=== PATIENT | male | born 1960 ===

== ENCOUNTER 2016-10-30 10:23 | Emergency (ER) | payer MEDICARE ==
[2016-10-30 10:41] VITALS: BMI 40.1
[2016-10-30 10:45] VITALS: RESP 17; TEMP 97.4
[2016-10-30] MEDS ORDERED: Sodium Chloride 0.9% 1,000 ML IV STA (11:25)
--- NOTE | 2016-10-30 11:29 | ED PDOC ---
Arrival/HPI - General Chief Complaint: Medical Clearance Time Seen by Provider: 10/30/16 11:10 Historian: Patient - History of Present Illness Narrative History of Present Illness (Text): 10/30/16 11:27 56 year old male with a past medical history that includes pancreatic cancer and DM, sent to the emergency department from chemo/radiation for low blood pressure prior to arrival. Patient states his blood pressure was in the 70's systolic associated with some very mild dizziness which has since resolved. Currently patient has no complaints. Patient denies any fever, sore throat, cough, shortness of breath, nausea, vomiting, abdominal pain, urinary/bowel changes, back pain, new rashes, headache, vision changes or other associated symptoms. His BP in the ED was normal without any intervention. Time/Duration: 24 hours Symptom Onset: Gradual Symptom Course: Resolved Modifying Factors (Text): None Associated Symptoms (Text): None Past Medical History - Provider Review Nursing Documentation Reviewed: Yes - Cardiac Hx Hypertension: Yes Hx Pacemaker: No - Pulmonary Hx Asthma: Yes - Endocrine/Metabolic Hx Diabetes Mellitus Type 2: Yes - Hematological/Oncological Hx Blood Transfusions: No Hx Cancer: Yes - Musculoskeletal/Rheumatological Hx Musculoskeletal Disorders: No - Psychiatric Hx Emotional Abuse: No Hx Physical Abuse: No Hx Substance Use: No - Anesthesia Hx Anesthesia Reactions: No Hx Malignant Hyperthermia: No - Suicidal Assessment Feels Threatened In Home Enviroment: No Family/Social History - Physician Review Nursing Documentation Reviewed: Yes Family/Social History: Unknown Family HX Smoking Status: Never Smoked Hx Alcohol Use: No Hx Substance Use: No Allergies/Home Meds Allergies/Adverse Reactions: Allergies penicillin G procaine Allergy (Verified 10/30/16 10:41) RASH Penicillins Allergy (Verified 10/30/16 10:41) ANAPHYLAXIS Home Medications: Home Meds Medication Instructions Recorded Confirmed Budesonide/Formoterol Fumarate 1 aer IH DAILY 10/30/16 10/30/16 [Symbicort] Canagliflozin [Invokana] 300 mg PO DAILY 10/30/16 10/30/16 Cetirizine HCl [Allergy Relief] 10 mg PO DAILY 10/30/16 10/30/16 Cilostazol [Pletal] 100 mg PO DAILY 10/30/16 10/30/16 Fenofibrate [Triglide] 160 mg PO DAILY 10/30/16 10/30/16 Insulin Aspart, Recombinant 100 unit SQ DAILY 10/30/16 10/30/16 [Novolog] Insulin Detemir [Levemir] 100 unit SC DAILY 10/30/16 10/30/16 Linagliptin [Tradjenta] 5 mg PO DAILY 10/30/16 10/30/16 MetFORMIN [glucOPHAGE] 500 mg PO BID 10/30/16 10/30/16 Pantoprazole [Protonix] 40 mg PO DAILY 10/30/16 10/30/16 Pregabalin [Lyrica] 100 mg PO DAILY 10/30/16 10/30/16 Rosuvastatin Calcium [Crestor] 10 mg PO DAILY 10/30/16 10/30/16 Valsartan [Diovan] 40 mg PO DAILY 10/30/16 10/30/16 Valsartan [Diovan] 40 mg PO DAILY 10/30/16 10/30/16 Review of Systems - Physician Review All systems were reviewed & negative as marked: Yes - Review of Systems Constitutional: absent: Fevers Eyes: absent: Vision Changes ENT: absent: Hearing Changes, Sore Throat Respiratory: absent: SOB, Cough Cardiovascular: absent: Chest Pain Gastrointestinal: absent: Abdominal Pain, Nausea, Vomiting Genitourinary Male: absent: Dysuria, Hematuria Musculoskeletal: absent: Back Pain Skin: absent: Rash Neurological: absent: Dizziness Endocrine: absent: Diaphoresis Hemo/Lymphatic: absent: Easy Bleeding Psychiatric: absent: Depression Physical Exam Vital Signs Reviewed: Yes Vital Signs Temp Pulse Resp BP Pulse Ox 10/30/16 10:24 97.4 F L 85 17 107/66 97 Temperature: Afebrile Blood Pressure: Normal Pulse: Regular Respiratory Rate: Normal Appearance: Positive for: Well-Appearing, Non-Toxic, Comfortable Pain Distress: None Mental Status: Positive for: Alert and Oriented X 3 - Systems Exam Head: Present: Atraumatic, Normocephalic Pupils: Present: PERRL Conjunctiva: Present: Normal Mouth: Present: Moist Mucous Membranes Pharnyx: Present: Normal. No: ERYTHEMA, EXUDATE Neck: Present: Normal Range of Motion Respiratory/Chest: Present: Clear to Auscultation, Good Air Exchange. No: Respiratory Distress, Accessory Muscle Use Cardiovascular: Present: Regular Rate and Rhythm, Normal S1, S2. No: Murmurs Abdomen: Present: Normal Bowel Sounds. No: Tenderness, Distention, Peritoneal Signs Back: Present: Normal Inspection Upper Extremity: Present: Normal Inspection. No: Cyanosis, Edema Lower Extremity: Present: Normal Inspection. No: Edema Neurological: Present: GCS=15, CN II-XII Intact, Speech Normal Skin: Present: Warm, Dry, Normal Color. No: Rashes Psychiatric: Present: Alert, Oriented x 3, Normal Insight, Normal Concentration Medical Decision Making ED Course and Treatment: Impression: 56 year old male with a past medical history that includes pancreatic cancer sent to the emergency department from chemo/radiation for low blood pressure prior to arrival, which has since resolved and in now asymptomatic. Plan: -- EKG -- IV fluids, Labs -- Reassess and disposition Progress Notes: Patient's BP is normal here with unremarkable EKG and labs. Spoke with radiation, who said the patient may return for his treatment. 10/30/16 13:21 - Lab Interpretations Lab Results: 10/30/16 12:00 10/30/16 12:00 Lab Results 10/30/16 12:00: WBC 5.1, RBC 4.33, Hgb 13.0 L, Hct 37.0 L, MCV 85.5, MCH 30.0, MCHC 35.1, RDW 13.3, Plt Count 120, MPV 11.6 H, Gran % 72.9 H, Lymph % (Auto) 12.3 L, Kerr % (Auto) 10.5 H, Eos % (Auto) 3.9, Baso % (Auto) 0.4, Gran # 3.75, Lymph # 0.6 L, Kerr # 0.5, Eos # 0.2, Baso # 0.02, PT 11.0, INR 1.02, APTT 28.5 , Sodium 135, Potassium 4.1, Chloride 98, Carbon Dioxide 29, Anion Gap 12, BUN 6 L, Creatinine 0.6, Est GFR ( Amer) > 60, Est GFR (Non-Af Amer) > 60, Random Glucose 278 H, Calcium 8.9, Total Bilirubin 0.9, AST 22, ALT 35, Alkaline Phosphatase 87, Lactate Dehydrogenase 357, Total Creatine Kinase 157, Troponin I 0.01, Total Protein 6.6, Albumin 3.4, Globulin 3.2, Albumin/Globulin Ratio 1.1, Lipase < 10 L, Urine Color Yellow, Urine Appearance Clear, Urine pH 6.0, Ur Specific Lares <= 1.005, Urine Protein Negative, Urine Glucose (UA) >= 1000, Urine Ketones Negative, Urine Blood Negative, Urine Nitrate Negative, Urine Bilirubin Negative, Urine Urobilinogen 0.2, Ur Leukocyte Esterase Negative - EKG Interpretation EKG Interpretation (Text): 10/30/16 13:22 sinus hilario @ 57; no ST/T changes; LAD; normal intervals. - Medication Orders Current Medication Orders: Discontinued Medications Sodium Chloride (Sodium Chloride 0.9%) 1,000 mls @ 999 mls/hr IV .[id number] STA Stop: 10/30/16 12:25 Last Admin: 10/30/16 12:00 Dose: 999 MLS/HR eMAR Start Stop Document 10/30/16 12:00 SHANIQUA (Rec: 10/30/16 12:02 SHANIQUA [id number]) Intravenous Solution Start Date 10/30/16 Start Time 12:00 End Date 10/30/16 End time 13:00 Total Infusion Time 60 - Scribe Statement The provider has reviewed the documentation as recorded by the Tahir Mcgill Provider Scribe Attestation: All medical record entries made by the Tahir were at my direction and personally dictated by me. I have reviewed the chart and agree that the record accurately reflects my personal performance of the history, physical exam, medical decision making, and the department course for this patient. I have also personally directed, reviewed, and agree with the discharge instructions and disposition. Disposition/Present on Arrival - Present on Arrival Any Indicators Present on Arrival: No History of DVT/PE: No History of Uncontrolled Diabetes: No Urinary Catheter: No History of Decub. Ulcer: No History Surgical Site Infection Following: None - Disposition Have Diagnosis and Disposition been Completed?: Yes Diagnosis: Hypotension Disposition: HOME/ ROUTINE Disposition Time: 15:25 Patient Plan: Discharge Condition: GOOD Additional Instructions: Go directly radiation. Return to the emergency department if any new concerning symptoms.
[2016-10-30 12:17] LABS: ADD MANUAL DIFF? NO
[2016-10-30 12:37] LABS: BASO # 0.02 K/mm3 (0.0-2.0); BASO % 0.4 % (0.0-3.0); EOS # 0.2 (0.0-0.7); EOS % 3.9 % (1.5-5.0); GRAN # 3.75 (1.4-6.5); GRAN % 72.9 % (50.0-68.0); LYMPH # 0.6 (1.2-3.4); LYMPH % 12.3 % (22.0-35.0); MEAN CELL VOLUME 85.5 fL (80.0-105.0); MEAN CORPUSCULAR HGB CONC 35.1 g/dl (31.0-37.0); MEAN PLATELET VOLUME 11.6 fl (7.0-11.0); MONO # 0.5 (0.1-0.6); MONO % 10.5 % (1.0-6.0); PLATELET COUNT 120 10^3/uL (120.0-450.0); RED CELL DISTRIBUTION WIDTH 13.3 % (11.5-14.5); URINE BILIRUBIN NEGATIVE (NEGATIVE); URINE BLOOD NEGATIVE (NEGATIVE); URINE GLUCOSE (UA) >=1000 mg/dL (NEGATIVE); URINE KETONE NEGATIVE (NEGATIVE); URINE LEUKOCYTE ESTERASE NEGATIVE Leu/uL (NEGATIVE); URINE PROTEIN NEGATIVE mg/dL (<30 mg/dL); URINE UROBILINOGEN 0.2 E.U./dL (<1 E.U./dL); WHITE BLOOD COUNT 5.1 10^3/ul (4.5-11.0)
[2016-10-30 12:39] LABS: URINE APPEARANCE CLEAR (CLEAR); URINE COLOR YELLOW (YELLOW)
[2016-10-30 12:41] LABS: ALB/GLOB RATIO 1.1 (1.1-1.8); ALKALINE PHOSPHATASE 87 U/L (38-133); ALT/SGPT 35 U/L (7-56); AST/SGOT 22 U/L (15-59); BILIRUBIN,TOTAL 0.9 mg/dL (0.2-1.3); BLOOD UREA NITROGEN 6 mg/dL (7-21); CALCIUM 8.9 mg/dL (8.4-10.5); CARBON DIOXIDE 29 mmol/L (21-33); CHLORIDE 98 mmol/L (98-107); GFR AFRICAN-AMERICAN > 60; GLUCOSE,RANDOM 278 mg/dL (70-110); POTASSIUM 4.1 mmol/L (3.6-5.0); SODIUM 135 mmol/L (132-148); TOTAL PROTEIN 6.6 g/dL (5.8-8.3)
[2016-10-30 12:42] LABS: INR 1.02 (0.93-1.08); PARTIAL THROMBOPLASTIN TIME 28.5 Seconds (23.7-30.8)
[2016-10-30 12:44] LABS: LIPASE < 10 U/L (23-300)
[2016-10-30 12:51] LABS: TROPONIN I 0.01 ng/mL
[2016-10-30 13:40] VITALS: BP 144/77; PULSE 61; O2SAT 98
--- NOTE | 2016-10-30 18:50 | CARD ---
APPROVED REPORT EKG Measurement Heart [id number] <Conclusion> Sinus bradycardia Left axis deviation Moderate voltage criteria for LVH, may be normal variant Abnormal ECG
== END 2016-10-30 13:50 | disposition home or self-care (01) ==
LOC: ED 10:23
DX: I95.9 Hypotension, unspecified (principal); E11.9 Type 2 diabetes mellitus without complications; I10 Essential (primary) hypertension
CPT/HCPCS: 80053; 81003; 82550; 83615; 83690; 84484; 85025; 85610; 85730; 93005; 96360; 99282; J7040